=== PATIENT | female | born 1945 | race Caucasian/White ===

== ENCOUNTER 2017-02-03 16:35 | Emergency (ER) | payer MEDICARE, OTHER ==
[2017-02-03 16:41] VITALS: BP 134/52
--- NOTE | 2017-02-03 17:23 | UC ---
Ear Complaint HPI - HPI Summary HPI Summary: 71 y/o female presents to the [facility] c/o LF ear pain since yesterday. Pt states last week she felt mild ear discomfort, but yesterday pain became worse. She also felt sore throat on the left side with a pain just below her left ear. Pain is 6/10 and subjective fever at home. She has not taking anything to alleviate symptoms. She is concerned since she is flying back to [place] in 2 days. Pt denies dizziness, MOYA, SOB, chest pain, N/V/D. - History of Current Complaint Chief Complaint: UCEar Stated Complaint: EAR PAIN Time Seen by Provider: 02/03/17 17:07 Hx Obtained From: Patient ?: No Onset/Duration: Gradual Onset, Lasting Days - 1 week on and of, but yesterday became worse Severity Initially: Mild Severity Currently: Moderate Pain Intensity: 6 Pain Scale Used: 0-10 Numeric Aggravating Factors: Nothing Alleviating Factors: Nothing Associated Signs/Symptoms: Positive: Swelling @ - lymphnode below the left ear - Allergies/Home Medications Allergies/Adverse Reactions: Allergies Allergy/AdvReac Type Severity Reaction Status Date / Time No Known Allergies Allergy Verified 02/03/17 16:42 Home Medications: Home Medications Anastrozole [Arimidex] 1 cap PO DAILY 02/03/17 [History Confirmed 02/03/17] Aspirin EC Low Dose* [Ecotrin EC Low Dose 81 MG*] 1 cap PO DAILY 02/03/17 [ History Confirmed 02/03/17] Atorvastatin* [Lipitor 10 MG*] 1 cap PO SEE INSTRUCTIONS 02/03/17 [History Confirmed 02/03/17] Calcium Carbonate [Calcium 600] 1 cap PO DAILY 02/03/17 [History Confirmed 02/03] Cholecalciferol [Vitamin D] 1 cap PO DAILY 02/03/17 [History Confirmed 02/03/17] Ibandronate Sodium 1 cap PO DAILY 02/03/17 [History Confirmed 02/03/17] Levothyroxine TAB* [Synthroid 75 MCG TAB*] 1 cap PO DAILY 02/03/17 [History Confirmed 02/03/17] PMH/Surg Hx/FS Hx/Imm Hx Previously Healthy: Yes Endocrine History: Hypothyroidism, Dyslipidemia Cancer History: Breast Cancer - cancer survivor past 7 years - Surgical History Surgical History: Yes Surgery Procedure, Year, and Place: Breast. Foot - Family History Known Family History: Positive: None Family History: Dyslipidemia - Social History Occupation: Retired Lives: With Family Alcohol Use: Occasionally Substance Use Type: None Smoking Status (MU): Never Smoked Tobacco Review of Systems Constitutional: Negative Skin: Negative Eyes: Negative ENT: Sore Throat - left side, Ear Ache - LF ear Respiratory: Negative Cardiovascular: Negative Gastrointestinal: Negative Genitourinary: Negative Motor: Negative Neurovascular: Negative Musculoskeletal: Negative Neurological: Negative Psychological: Negative Is Patient Immunocompromised?: No All Other Systems Reviewed And Are Negative: Yes Physical Exam Triage Information Reviewed: Yes Appearance: Well-Appearing, No Pain Distress, Well-Nourished Vital Signs: Initial Vital Signs Temp 97.7 F 02/03/17 16:38 Pulse 74 02/03/17 16:38 Resp 12 02/03/17 16:38 BP 134/52 02/03/17 16:38 Pulse Ox 100 02/03/17 16:38 Vital Signs Reviewed: Yes Eye Exam: Normal Eyes: Positive: Conjunctiva Clear - PERRLA, EOMI ENT: Positive: Normal ENT inspection, Hearing grossly normal, Pharynx normal, TM red - B/L external ear canals clear and WNL, RT TM WNL, LF TM with moderate erythema and mild yellowish purulent discharge. Negative: Nasal congestion, Nasal drainage, Tonsillar swelling, Tonsillar exudate Neck exam: Normal Neck: Positive: Supple, Nontender, Enlarged Nodes @ - LF anterior cervical lymphnode tender and swollen Respiratory Exam: Normal Respiratory: Positive: Chest non-tender, Lungs clear, Normal breath sounds Cardiovascular Exam: Normal Cardiovascular: Positive: RRR, No Murmur, Pulses Normal, Brisk Capillary Refill Abdominal Exam: Normal Abdomen Description: Positive: Nontender, No Organomegaly, Soft. Negative: CVA Tenderness (R), CVA Tenderness (L) Bowel Sounds: Positive: Present Musculoskeletal Exam: Normal Musculoskeletal: Positive: Strength Intact, ROM Intact, No Edema Neurological Exam: Normal Psychological Exam: Normal Skin Exam: Normal Ear Complaint Course/Dx - Course Course Of Treatment: 71 y/o female presents to the [facility] c/o ear pain since yesterday. Pt states last week she felt mild ear discomfort, but yesterday pain became worse. She also felt sore throat on the left side with a pain just below her left ear. Pain is 6/10 and subjective fever at home. She has not taking anything to alleviate symptoms. She is concerned since she is flying back to [place] in 2 days. Pt denies dizziness, MOYA, SOB, chest pain, N/V/ D.HX obtained. On examination Pt with LF acute otitis Media. Pt given first dose of Augmentin at the clinic since pharmacy is close at this time. Pt tolerated well medication. Rx sent to pharmacy and also Rx Ibuprofen PO for pain. Pt given D/C instructions and She understood and agreed with plan of care. - Differential Dx/Diagnosis Differential Diagnosis/HQI/PQRI: Cerumen Impaction, Mastoiditis, Otitis Externa , Otitis Media, Perforated TM, Pharyngitis, URI Provider Diagnoses: 1- Acute otitis media Discharge - Discharge Plan Condition: Stable Disposition: HOME Prescriptions: Amoxicillin/Clavulanate TAB* [Augmentin TAB 875*] 875 mg PO BID #19 tab Ibuprofen TAB* [Motrin TAB* 800 MG] 800 mg PO Q6H #30 tab Patient Education Materials: Otitis Media (ED) Referrals: [facility] [Outside] - If Needed Additional Instructions: 1- Please take the full course of the antibiotic to avoid resistance. 2-Please take ibuprofen PO q6-8hrs prn as instructed after meals to alleviate pain and swelling. 3-If symptoms do not improve or worsen please return to the urgent care or f/u with a PCP for further evaluation and treatment.
[2017-02-03] MEDS ORDERED: Amoxicillin/Clavulanate TAB* 875 MG PO ONE (17:29)
== END 2017-02-03 17:41 | disposition home or self-care (01) ==
LOC: UCEAST 16:35
DX: H66.90 Otitis media, unspecified, unspecified ear (principal); Z79.82 Long term (current) use of aspirin; E03.9 Hypothyroidism, unspecified; E78.5 Hyperlipidemia, unspecified; Z85.3 Personal history of malignant neoplasm of breast
CPT/HCPCS: 99202; A9270-GY; G0463